=== PATIENT | male | born 1965 | race Caucasian/White ===

== ENCOUNTER 2016-10-27 21:52 | Emergency (ER) | payer MEDICAID, OTHER ==
[~2016-10-27] VITALS: Ht 170.2 cm; Wt 91.2 kg
[2016-10-27 22:00] VITALS: BP 182/106
[2016-10-27] MEDS ORDERED: OXYcodone/APAP 5/325MG TABLET ONE (22:15)
[2016-10-27] MEDS ORDERED: OXYcodone/APAP 5/325MG TABLET PO ONE (22:30)
== END 2016-10-27 23:11 | disposition home or self-care (01) ==
LOC: ED 23:01
DX: S50.01XA Contusion of right elbow, initial encounter (principal); I10 Essential (primary) hypertension; M54.30 Sciatica, unspecified side; X58.XXXA Exposure to other specified factors, initial encounter; Y93.89 Activity, other specified; Y92.89 Other specified places as the place of occurrence of the external cause; Y99.8 Other external cause status
CPT/HCPCS: 29105

== ENCOUNTER 2017-02-24 20:48 | Inpatient (IN) | payer MEDICAID, OTHER ==
[~2017-02-24] VITALS: Ht 170.2 cm; Wt 83.3 kg
[2017-02-24] MEDS ORDERED: ASPIRIN 81 MG TABLET CHEW ONE (21:18)
[2017-02-24] MEDS ORDERED: ENALAPRILAT 1.25 MG/ML, 2ML IV ONE (21:30)
[2017-02-24] MEDS ORDERED: ASPIRIN 81 MG TABLET CHEW PO ONE (21:30)
[2017-02-24] MEDS ORDERED: LABETALOL 5MG/ML, 20ML IVPush ONE (21:30)
[2017-02-24] MEDS ORDERED: SODIUM CHLORIDE FLUSH 10ML SYR IVF ONE (21:30)
[2017-02-24] MEDS ORDERED: LORazepam 2 MG/ML, 1ML IVPush ONE (21:30)
[2017-02-24] MEDS ORDERED: ENALAPRILAT 1.25 MG/ML, 2ML ONE (21:35)
[2017-02-24] MEDS ORDERED: LORazepam 2 MG/ML, 1ML ONE (21:36)
[2017-02-24 21:44] LABS: HEMATOCRIT 43.9 % (39.2-51.8); HEMOGLOBIN 15.3 g/dL (13.7-18.0)
[2017-02-24 21:57] LABS: ASPARTATE AMINO TRANSFERASE 25 U/L (15-37); BLOOD UREA NITROGEN 13 mg/dL (7-18)
[2017-02-24 22:02] LABS: IS PT STATUS REG ER OR PRE ER? YES
[2017-02-24] MEDS ORDERED: LABETALOL 5MG/ML, 20ML ONE (22:15)
[2017-02-24] MEDS ORDERED: POTASSIUM CHLORIDE 20 MEQ TAB.ER.PRT ONE (22:15)
[2017-02-24] MEDS ORDERED: OMNIPAQUE 350 MG/ML, 100ML BOTTLE ONE (22:23)
[2017-02-24] MEDS ORDERED: POTASSIUM CHLORIDE 20 MEQ TAB.ER.PRT PO ONE (22:30)
[2017-02-24] MEDS ORDERED: ONDANSETRON 2MG/ML, 2ML IVPush PRN (23:30)
[2017-02-24] MEDS ORDERED: NITROGLYCERIN 0.4 MG BOTTLE (25 TABS) SL PRN (23:30)
[2017-02-24] MEDS ORDERED: morphine SULFATE 10 MG/ML, 1ML IVPush PRN (23:30)
[2017-02-24] MEDS ORDERED: hydrALAzine 20 MG/ML, 1ML IVPush PRN (23:30)
[2017-02-24] MEDS ORDERED: BISACODYL 10 MG SUPP PR PRN (23:30)
[2017-02-24] MEDS: HEPARIN 5,000 UNITS/ML, 1ML SQ SCH (23:30)
[2017-02-24] MEDS: SODIUM CHLORIDE FLUSH 10ML SYR IVF SCH (23:30)
[2017-02-24] MEDS ORDERED: ACETAMINOPHEN 325 MG TABLET PO PRN (23:30)
[2017-02-24] MEDS ORDERED: POLYETHYLENE GLYCOL 17 GM PACKET PO PRN (23:30)
[2017-02-24 23:38] VITALS: BP 183/98
[2017-02-24] MEDS ORDERED: PHEN100C PO (23:58)
[2017-02-25 00:27] VITALS: BP 138/85
[2017-02-25 04:08] LABS: BLOOD UREA NITROGEN 16 mg/dL (7-18)
[2017-02-25 04:29] LABS: IS PT STATUS REG ER OR PRE ER? NO
[2017-02-25 05:12] VITALS: BP 121/78
[2017-02-25] MEDS ORDERED: PNEUMOCOCCAL 23 VACCINE IM-VACC ONE (06:00)
[2017-02-25] MEDS ORDERED: FLU VACC QS2017-18 (36MOS+) UP/PF 0.5 ML IM-VACC ONE (06:00)
[2017-02-25] MEDS ORDERED: ASPIRIN 81 MG TABLET EC PO SCH (06:00)
[2017-02-25] MEDS: HEPARIN 5,000 UNITS/ML, 1ML SQ SCH (07:30)
[2017-02-25 08:00] VITALS: BP 156/97
[2017-02-25] MEDS ORDERED: REGADENOSON 0.4 MG/5 ML SYRINGE ONE (08:13)
[2017-02-25] MEDS ORDERED: SENNA/DOCUSATE TABLET PO SCH (09:00)
[2017-02-25] MEDS: SODIUM CHLORIDE FLUSH 10ML SYR IVF SCH (09:00)
[2017-02-25 11:13] LABS: IS PT STATUS REG ER OR PRE ER? NO
[2017-02-25] MEDS ORDERED: SIMV10TA3 PO (14:04)
[2017-02-25] MEDS ORDERED: ASPI-621 PO (14:04)
[2017-02-25] MEDS ORDERED: PHENYTOIN 100 MG CAPSULE PO SCH (21:00)
[2017-02-25] MEDS ORDERED: SIMVASTATIN 10 MG TABLET PO SCH (21:00)
== END 2017-02-25 15:19 | disposition home or self-care (01) | DRG 880 ==
LOC: ED 21:34 → 5SO 22:59
PROVIDERS: ADMIT Family Medicine; ATTEND Family Medicine
DX: F41.9 Anxiety disorder, unspecified (principal); G40.909 Epilepsy, unspecified, not intractable, without status epilepticus; E78.1 Pure hyperglyceridemia; E87.6 Hypokalemia; F17.200 Nicotine dependence, unspecified, uncomplicated; I10 Essential (primary) hypertension; I16.0 Hypertensive urgency; I99.8 Other disorder of circulatory system; Z79.82 Long term (current) use of aspirin; Z88.8 Allergy status to other drugs, medicaments and biological substances
CPT/HCPCS: 36415; 71020; 71275; 74175; 78452; 80048; 80053; 80061; 80185; 84439; 84443; 84484; 85025; 90686; 90732; 93005; 93017; 96374; 96375; J2785; Q9967; A9502; C9898; J2060

== ENCOUNTER 2017-11-06 13:10 | Emergency (ER) | payer MEDICAID, OTHER ==
[~2017-11-06] VITALS: Ht 170.2 cm; Wt 95.6 kg
[~2017-11-06 13:10] MED LIST: ASPI-621 PO; PHEN100C PO; SIMV10TA3 PO
[2017-11-06 13:18] VITALS: BP 182/100
== END 2017-11-06 15:18 | disposition home or self-care (01) ==
LOC: ED 15:00
DX: S63.641A Sprain of metacarpophalangeal joint of right thumb, initial encounter (principal); W19.XXXA Unspecified fall, initial encounter; Y93.89 Activity, other specified; Y92.009 Unspecified place in unspecified non-institutional (private) residence as the place of occurrence of the external cause; Y99.8 Other external cause status
CPT/HCPCS: 29125; 99284